=== PATIENT | female | born 1990 | race Caucasian/White ===

== ENCOUNTER 2016-08-10 09:42 | Emergency (ER) | payer SELFPAY ==
[2016-08-10 10:29] LABS: BASO % 0.4 % (0.0-1.0); EOS # 0.1 K/mm3 (0.0-0.50); EOS % 1.3 % (0.0-3.0); LARGE UNSTAINED CELL # 0.1 K/mm3 (0.0-0.4); LARGE UNSTAINED CELL % 1.7 % (0.0-4.0); LYMPH # 1.8 K/mm3 (1.5-6.5); LYMPH % 18.6 % (24.0-44.0); MEAN CORPUSCULAR HGB CONC 32.8 g/dl (32.0-36.5); MEAN CORPUSCULAR VOLUME 88.4 fl (80.0-96.0); MONO # 0.6 K/mm3 (0.0-0.8); MONO % 6.8 % (0.0-5.0); NEUTROPHILS # 6.1 K/mm3 (1.8-7.7); NEUTROPHILS % 71.3 % (36.0-66.0); PLATELET COUNT, AUTOMATED 403 k/mm3 (150-450); RED CELL DISTRIBUTION WIDTH 12.7 % (11.5-14.5); WHITE BLOOD COUNT 8.6 K/mm3 (4.0-10.0)
[2016-08-10 10:50] LABS: ANION GAP 9 MEQ/L (8-16); BLOOD UREA NITROGEN 14 MG/DL (7-18); CALCIUM LEVEL 9.3 MG/DL (8.5-10.1); CARBON DIOXIDE LEVEL 24 MEQ/L (21-32); CHLORIDE LEVEL 107 MEQ/L (98-107); CREATININE FOR GFR 1.05 MG/DL (0.55-1.02); GLOMERULAR FILTRATION RATE > 60.0 (>60); GLUCOSE, FASTING 88 MG/DL (70-105); POTASSIUM SERUM 4.2 MEQ/L (3.5-5.1); SODIUM LEVEL 140 MEQ/L (136-145)
[2016-08-10 10:56] LABS: HCG, SERUM QUANTITATIVE < 1.0 MIU/ML
--- NOTE | 2016-08-10 11:40 | REP ---
CHEST, TWO VIEWS: There is no evidence of acute infiltrate. No pleural effusion is seen. The heart is normal in size. The mediastinal silhouette is unremarkable. The visualized osseous structures are intact. IMPRESSION: No acute pulmonary disease. Signed by Bo Pinedo MD 08/10/2016 12:17 P
--- NOTE | 2016-08-10 11:54 | EDDOCDS ---
Nurse's Notes [facility], [place] Name: Jelena Cantu Age: 26 yrs Sex: Female : 1990 Arrival Date: 08/10/2016 Time: 09:42 Bed I2 / M2 Private MD: Diagnosis: Anxiety disorder, unspecified;Chest pain, unspecified Presentation: 08/10 09:48 Presenting complaint: Patient states: Intermittent chest pain over the past year mlb1 continuous in the past few days. Aspirin was not taken prior to arrival. Adult Sepsis Screening: The patient does not have new or worsening altered mentation. Patient's respiratory rate is less than 22. Systolic blood pressure is greater than 100. Patient has a qSOFA score of 0- Negative Sepsis Screen. Suicide/Homicide risk assessment- the patient denies having any suicidal and/or homicidal ideations and does not present with any other emotional, behavioral or mental health complaints. Status: Patient is not a food service ambassador or dependent. Transition of care: patient was not received from another setting of care. 09:48 Acuity: EDWARD Level 3 mlb1 09:48 Method Of Arrival: Walkin/Carried/Asstd mlb1 Triage Assessment: 09:50 General: Appears in no apparent distress, well nourished, well groomed, Behavior is mlb1 appropriate for age, cooperative, pleasant. Pain: Location: chest Pain currently is 7 out of 10 on a pain scale. Pain radiates to lower abd. Pt Declines HIV testing. Cardiovascular: Chest pain is described as Pain is 7 out of 10 on a pain scale. radiates lower abd episodes are intermittent x1 year began x1 year. Respiratory: Airway is patent Respiratory effort is even, unlabored, Reports shortness of breath. GI: Reports lower abdominal pain, Denies vomiting, pain. Derm: Skin is normal. Injury Description: No known injury. 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 aspirin 325 mg Oral TbEC 1 tab once daily (Last dose: 08/10/2016 07:00) 2. BCPs daily (Last dose: 08/10/2016 07:00) - PMHx: none; - PSHx: Appendectomy; - Social history: Smoking status: Patient states was never smoker of tobacco. Patient uses alcohol only on a social basis. Patient/guardian denies using street drugs, No barriers to communication noted, The patient speaks fluent Lebanese, Speaks appropriately for age. - Family history: Not pertinent. - : The pt / caregiver states he / she is not on anticoagulants. Home medication list is obtained from the patient. - Exposure Risk Screening:: None identified. Screenin:30 Screening information is obtained from the patient. Fall risk: No risks identified. jmk Assistance ADL's: requires no assistance with activities of daily living. Abuse/DV Screen: The patient / caregiver reports he/she is: not in a situation that causes fear, pain or injury. Nutritional screening: No deficits noted. Advance Directives: Currently, there is no health care proxy. There is no active DNR order. There is no living will. There is no Power of Barrel Leveler. Advance directive information has not previously been placed in an [facility] medical record. Further advance directive information is declined. home support is adequate. Assessment: 10:30 General: Appears skin warm and dry color satisfactory. moist pink oral mucosa Indicates jmk discomfort to left breast area. Pain is not increased with palpation inspiration or movement. chest CTA no work of breathing noted. Cardiovascular: Capillary refill < 3 seconds Heart tones S1 S2 present Edema is absent. Rhythm is regular. Respiratory: No deficits noted. Airway is patent Respiratory effort is even, unlabored, Respiratory pattern is regular, Breath sounds are clear bilaterally. 11:37 General: Appears states pain is still 6/10. very casual presentation. without resp jmk distress. awaiting dispo.. Vital Signs: 09:45 BP 133 / 78 RA Sitting (auto/reg); Pulse 84; Resp 16; Temp 99.1(O); Pulse Ox 98% ; jrd Weight 93.44 kg (R); Height 5 ft. 3 in. (160.02 cm); Pain 8/10; 11:45 BP 122 / 72; Pulse 76; Resp 14; Temp 99.2(O); Pulse Ox 97% on R/A; Pain 6/10; ead 09:45 Body Mass Index 36.49 (93.44 kg, 160.02 cm) jrd Vitals: 09:45 Log In Time: August 10, 2016 at 09:40. RN notified that patient meets Red Flag jrd criteria. ED Course: 09:44 Patient visited by Leander Musa PCA. jrd 09:44 Patient moved to Waiting jrd 09:47 Patient visited by Leander Musa PCA. jrd 09:47 Patient moved to Pre RCE jrd 09:48 Patient visited by Alessandro Akers RN. mlb1 09:49 Triage Initiated mlb1 09:53 Patient moved to Triage 2 mlb1 09:54 [facility] dt4 09:54 Kale Madrid MD is Attending Physician. dt4 09:55 Patient visited by Roxy Cordova PA-C. dt4 10:09 Patient moved to I2 / M2 ead 10:17 Patient visited by Cherelle Black RN. ead 10:17 Cardiac Injury Profile Sent. ead 10:17 TSH w/o Free T4 Sent. ead 10:17 Hcg, Serum Quantitative Sent. ead 10:17 CBC with Diff Sent. ead 10:17 Basic Metabolic Profile Sent. ead 10:17 Troponin Sent. ead 10:30 The patient / caregiver is instructed regarding the plan of care and ED course. Cardiac jmk monitoring not applicable on this patient. 10:30 Inserted saline lock: 20 gauge in right antecubital area. jmk 10:40 EKG done. (by ED staff). Reviewed by Roxy Cordova PA-C. tmm1 10:44 Patient name changed from Jelena\S\\S\Alondra\S\ to Jelena\S\Clarisa\S\Alondra. EDMS 10:45 PENDING SALE TO [facility] Payment Agreement was scanned into [employer]ent[employer] and attached to record. lg 11:28 Patient visited by Cherelle Black RN. ead 11:38 Patient visited by Bao Lares,KENDELL. jmk 11:42 [facility] is Referral Physician. dt4 11:52 Discontinued lock intact, bleeding controlled, pressure dressing applied, No jmk redness/swelling at site. No procedures done that require assistance. Order Results: Lab Order: Troponin; SPEC'M 17 10:15 Test: TROPONIN I; Value: < 0.02; Range: < 0.10; Units: NG/ML; Status: F Test Note: ; Troponin I Reference Interval for [employer] LOCI: 99th Percentile= 0.00-0.045 ng/ml Risk Stratification: <= 0.10 ng/ml Decreased Risk for Adverse Clinical Events. 0.10-1.50 ng/ml Increased Risk for Adverse Clinical Events. Evaluation of additional criterion and/or repeat testing in 2-6 hours is suggested to rule out myocardial damage. >= 1.50 ng/ml Indicative of Myocardial Injury. Lab Order: Cardiac Injury Profile; [facility] 08/10/16 10:15 Test: CPK CREATINE PHOSPHOKINASE; Value: 48; Range: 26-192; Units: U/L; Status: F Test: CK-MB VALUE MASS; Value: 1.2; Range: 0.0-3.6; Units: NG/ML; Status: F Test: MB/CK RELATIVE INDEX; Value: 2.50; Range: < OR =4; Status: F Test Note: ; DIAGNOSIS CRITERIA MMB ng/ml Relative Index (RI) NON-AMI < or = 5 N/A [place] > 5 < or = 4 AMI > 5 > 4 Lab Order: TSH w/o Free T4; [facility] 08/10/16 10:15 Test: THYROID STIMULATING HORMONE; Value: 2.330; Range: 0.358-3.740; Units: uIU/ML; Status: F Lab Order: Hcg, Serum Quantitative; [facility] 08/10/16 10:15 Test: HCG, SERUM QUANTITATIVE; Value: < 1.0; Units: MIU/ML; Status: F Test Note: ; GESTATIONAL AGE APPROXIMATE HCG RANGE (MIU/ML) 0.2-1 WEEK 5-50 1-2 WEEKS 50-500 2-3 WEEKS 100-5,000 3-4 WEEKS 500-10,000 4-5 WEEKS 1,000-50,000 5-6 WEEKS 10,000-100,000 6-8 WEEKS 15,000-200,000 2-3 MONTHS 10,000-100,000 NON FEMALES LESS THAN 3.0 Patient samples may contain human heterophilic antibodies that could react with immunoassays to give falsely elevated or depressed results. This assay has been designed to minimize interference from heterophilic antibodies. Elevated hCG levels have also been associated with trophoblastic disease and nontrophoblastic neoplasms. The possibility of having these diseases should be considered before a diagnosis of is made. This test is not intended for use as a surrogate marker for aiding in the diagnosis or monitoring the treatment of cancer patients. Siemens Pogoplug methodology. Lab Order: CBC with Diff; SPE[facility] 08/10/16 10:15 Test: WHITE BLOOD COUNT; Value: 8.6; Range: 4.0-10.0; Units: K/mm3; Status: F Test: RED BLOOD COUNT; Value: 4.38; Range: 4.00-5.40; Units: M/mm3; Status: F Test: HEMOGLOBIN; Value: 12.7; Range: 12.0-16.0; Units: g/dl; Status: F Test: HEMATOCRIT; Value: 38.7; Range: 36.0-47.0; Units: %; Status: F Test: MEAN CORPUSCULAR VOLUME; Value: 88.4; Range: 80.0-96.0; Units: fl; Status: F Test: MEAN CORPUSCULAR HEMOGLOBIN; Value: 29.0; Range: 27.0-33.0; Units: pg; Status: F Test: MEAN CORPUSCULAR HGB CONC; Value: 32.8; Range: 32.0-36.5; Units: g/dl; Status: F Test: RED CELL DISTRIBUTION WIDTH; Value: 12.7; Range: 11.5-14.5; Units: %; Status: F Test: PLATELET COUNT, AUTOMATED; Value: 403; Range: 150-450; Units: k/mm3; Status: F Test: NEUTROPHILS %; Value: 71.3; Range: 36.0-66.0; Abnormal: Above high normal; Units: %; Status: F Test: LYMPH %; Value: 18.6; Range: 24.0-44.0; Abnormal: Below low normal; Units: %; Status: F Test: MONO %; Value: 6.8; Range: 0.0-5.0; Abnormal: Above high normal; Units: %; Status: F Test: EOS %; Value: 1.3; Range: 0.0-3.0; Units: %; Status: F Test: BASO %; Value: 0.4; Range: 0.0-1.0; Units: %; Status: F Test: LARGE UNSTAINED CELL %; Value: 1.7; Range: 0.0-4.0; Units: %; Status: F Test: NEUTROPHILS #; Value: 6.1; Range: 1.8-7.7; Units: K/mm3; Status: F Test: LYMPH #; Value: 1.8; Range: 1.5-6.5; Units: K/mm3; Status: F Test: MONO #; Value: 0.6; Range: 0.0-0.8; Units: K/mm3; Status: F Test: EOS #; Value: 0.1; Range: 0.0-0.50; Units: K/mm3; Status: F Test: BASO #; Value: 0.0; Range: 0.0-0.2; Units: K/mm3; Status: F Test: LARGE UNSTAINED CELL #; Value: 0.1; Range: 0.0-0.4; Units: K/mm3; Status: F Lab Order: Basic Metabolic Profile; [facility] 08/10/16 10:15 Test: GLUCOSE, FASTING; Value: 88; Range: 70-105; Units: MG/DL; Status: F Test: BLOOD UREA NITROGEN; Value: 14; Range: 7-18; Units: MG/DL; Status: F Test: CREATININE FOR GFR; Value: 1.05; Range: 0.55-1.02; Abnormal: Above high normal; Units: MG/DL; Status: F Test: GLOMERULAR FILTRATION RATE; Value: > 60.0; Range: >60; Status: F Test: SODIUM LEVEL; Value: 140; Range: 136-145; Units: MEQ/L; Status: F Test: POTASSIUM SERUM; Value: 4.2; Range: 3.5-5.1; Units: MEQ/L; Status: F Test: CHLORIDE LEVEL; Value: 107; Range: 98-107; Units: MEQ/L; Status: F Test: CARBON DIOXIDE LEVEL; Value: 24; Range: 21-32; Units: MEQ/L; Status: F Test: ANION GAP; Value: 9; Range: 8-16; Units: MEQ/L; Status: F Test: CALCIUM LEVEL; Value: 9.3; Range: 8.5-10.1; Units: MG/DL; Status: F Test Note: ; Units are mL/min/1.73 m2 Chronic Kidney Disease Staging per NKF: Stage I & II GFR >=60 Normal to Mildly Decreased Stage III GFR 30-59 Moderately Decreased Stage IV GFR 15-29 Severely Decreased Stage V GFR <15 Very Little GFR Left ESRD GFR <15 on SUBSTATION ELECTRICIAN SUPERVISOR Outcome: 11:43 Discharge ordered by Provider. dt4 11:52 Discharge Assessment: Patient awake, alert and oriented x 3. No cognitive and/or k functional deficits noted. Patient verbalized understanding of disposition instructions. patient administered narcotics - no. The following High Risk Discharge criteria are identified: None. Discharged to home ambulatory. Condition: good. Discharge instructions given to patient, Instructed on discharge instructions, follow up and referral plans. medication usage, Demonstrated understanding of instructions, medications, Pt was receptive of discharge instructions/ teaching. Prescriptions given X 1. No special radiology studies were completed. Property :Personal belongings accompany Pt. 11:53 Patient left the ED. [facility] Signatures: Dispatcher [employer] EDMS Bao Lares,RN RN Ирина Avina, Alessandro Hinson lg RN RN mlb1 Pauline Crocker, SUPERINTENDENT OPERATING SUPERINTENDENT OPERATING tmm1 Cherelle Black,RN RN Roxy Chu, PA-C PA-C dt4 Leander Musa, SUPERINTENDENT OPERATING SUPERINTENDENT OPERATING jrd MTDD
--- NOTE | 2016-08-10 11:54 | EDDOCDS ---
Physician Documentation [facility] Name: Jelena Cantu Age: 26 yrs Sex: Female : 1990 Arrival Date: 08/10/2016 Time: 09:42 Bed I2 / M2 Private MD: Disposition: 08/10/16 11:43 Discharged to Home/Self Care. Impression: Anxiety disorder, unspecified, Chest pain, unspecified. - Condition is Stable. - Discharge Instructions: Nonspecific Chest Pain, Generalized Anxiety Disorder. - Prescriptions for Naprosyn 500 mg Oral Tablet - take 1 tablet by ORAL route every 12 hours As needed take with food; 30 tablet. - Medication Reconciliation, Local Pharmacy Hours form. - Follow up: Emergency Department; When: As needed; Reason: Worsening of conditions. [facility]; When: Call to arrange an appointment; Reason: Recheck today's complaints, Continuance of care, To establish care. - Problem is new. - Symptoms have improved. Historical: - Allergies: no known allergies; - Home Meds: 1. aspirin 325 mg Oral TbEC 1 tab once daily (Last dose: 08/10/2016 07:00) 2. BCPs daily (Last dose: 08/10/2016 07:00) - PMHx: none; - PSHx: Appendectomy; - Social history: Smoking status: Patient states was never smoker of tobacco. Patient uses alcohol only on a social basis. Patient/guardian denies using street drugs, No barriers to communication noted, The patient speaks fluent Telugu, Speaks appropriately for age. - Family history: Not pertinent. - : The pt / caregiver states he / she is not on anticoagulants. Home medication list is obtained from the patient. - Exposure Risk Screening:: None identified. 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 3 in. (160.02 cm); Pain 8/10; 11:45 BP 122 / 72; Pulse 76; Resp 14; Temp 99.2(O); Pulse Ox 97% on R/A; Pain 6/10; ead 09:45 Body Mass Index 36.49 (93.44 kg, 160.02 cm) jrd MDM: 10:09 IV Saline Lock ordered. dt4 10:10 Troponin Ordered. EDMS 10:10 Cardiac Injury Profile Ordered. EDMS 10:10 TSH w/o Free T4 Ordered. EDMS 10:10 Hcg, Serum Quantitative Ordered. EDMS 10:10 CBC with Diff Ordered. EDMS 10:10 Basic Metabolic Profile Ordered. EDMS 10:10 Chest, 2 View (pa\E\lat) Ordered. EDMS 10:10 ECG WITH READING ER PHYS+CARDIAG ordered. EDMS 10:21 Financial registration complete. lg 10:45 REPLACED BY [facility] Payment Agreement was scanned into [employer] and attached to record. lg 11:43 CBC with Diff Reviewed. dt4 11:43 Basic Metabolic Profile Reviewed. dt4 11:43 Troponin Reviewed. dt4 11:43 Cardiac Injury Profile Reviewed. dt4 11:43 TSH w/o Free T4 Reviewed. dt4 11:43 Hcg, Serum Quantitative Reviewed. dt4 Signatures: Dispatcher [employer] EDBao Antony,RN RN Ирина Avina, Reg Reg lg Alessandro Akers RN RN mlb1 Roxy Cordova, NIKA MAHER dt4 The chart was reviewed and I authenticate all verbal orders and agree with the evaluation and treatment provided.Attachments: 10:45 REPLACED BY [facility] Payment Agreement lg MTDD
--- NOTE | 2016-08-10 12:28 | ECGEPIP ---
Stationary ECG Study [facility] - ED Test Date: 2016-08-10 Pat Name: WENDIE MCCRAY Department: Room: - Gender: F Tool Distributor: [facility] : 1990 Requested By: ELOISA Burns PA-C Order Number: [id number] Reading MD: Feroz Sy Measurements Intervals [place] Rate: 78 P: 21 ME: 178 QRS: 74 QRSD: 83 T: 20 QT: 371 QTc: 425 Interpretive Statements SINUS RHYTHM NSTTW ABNORMALITIES NO PRIORS Electronically Signed On 08-10-2016 12:28:05 EST by Feroz Sy
--- NOTE | 2016-08-12 12:54 | EDDOCDS ---
Physician Documentation [facility] Name: Jelena Cantu Age: 26 yrs Sex: Female : 1990 Arrival Date: 08/10/2016 Time: 09:42 Bed I2 / M2 Private MD: Disposition: 08/10/16 11:43 Discharged to Home/Self Care. Impression: Anxiety disorder, unspecified, Chest pain, unspecified. - Condition is Stable. - Discharge Instructions: Nonspecific Chest Pain, Generalized Anxiety Disorder. - Prescriptions for Naprosyn 500 mg Oral Tablet - take 1 tablet by ORAL route every 12 hours As needed take with food; 30 tablet. - Medication Reconciliation, Local Pharmacy Hours form. - Follow up: Emergency Department; When: As needed; Reason: Worsening of conditions. [facility]: [facility]; When: Call to arrange an appointment; Reason: Recheck today's complaints, Continuance of care, To establish care. - Problem is new. - Symptoms have improved. Historical: - Allergies: no known allergies; - Home Meds: 1. aspirin 325 mg Oral TbEC 1 tab once daily (Last dose: 08/10/2016 07:00) 2. BCPs daily (Last dose: 08/10/2016 07:00) - PMHx: none; - PSHx: Appendectomy; - Social history: Smoking status: Patient states was never smoker of tobacco. Patient uses alcohol only on a social basis. Patient/guardian denies using street drugs, No barriers to communication noted, The patient speaks fluent Hungarian, Speaks appropriately for age. - Family history: Not pertinent. - : The pt / caregiver states he / she is not on anticoagulants. Home medication list is obtained from the patient. - Exposure Risk Screening:: None identified. 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 3 in. (160.02 cm); Pain 8/10; 11:45 BP 122 / 72; Pulse 76; Resp 14; Temp 99.2(O); Pulse Ox 97% on R/A; Pain 6/10; ead 09:45 Body Mass Index 36.49 (93.44 kg, 160.02 cm) jrd MDM: 10:09 IV Saline Lock ordered. dt4 10:10 Troponin Ordered. EDMS 10:10 Cardiac Injury Profile Ordered. EDMS 10:10 TSH w/o Free T4 Ordered. EDMS 10:10 Hcg, Serum Quantitative Ordered. EDMS 10:10 CBC with Diff Ordered. EDMS 10:10 Basic Metabolic Profile Ordered. EDMS 10:10 Chest, 2 View (pa\E\lat) Ordered. EDMS 10:10 ECG WITH READING ER PHYS+CARDIAG ordered. EDMS 10:21 Financial registration complete. lg 10:45 [facility] Payment Agreement was scanned into [email or web address] and attached to record. lg 11:43 CBC with Diff Reviewed. dt4 11:43 Basic Metabolic Profile Reviewed. dt4 11:43 Troponin Reviewed. dt4 11:43 Cardiac Injury Profile Reviewed. dt4 11:43 TSH w/o Free T4 Reviewed. dt4 11:43 Hcg, Serum Quantitative Reviewed. dt4 14:19 T-Sheet-- Draft Copy was scanned into [employer] and attached to record. klr 15:27 ECG/EKG was scanned into [employer]In and attached to record. gb Signatures: Dispatcher [employer]Host EDBao Antony,RN RN Tammy Landry, Reg Reg gb Ирина Mejia, Reg Reg lg Alessandro Akers RN RN mlb1 Roxy Cordova, PAOliviaC PA-C dt4 Chayo Rahamn The chart was reviewed and I authenticate all verbal orders and agree with the evaluation and treatment provided.Attachments: 10:45 [facility] Payment Agreement lg 14:19 T-Sheet-- Draft Copy klr 15:27 ECG/EKG gb Chart Complete MTDD
--- NOTE | 2016-08-12 12:54 | EDDOCDS ---
Physician Documentation [facility] Name: Jelena Cantu Age: 26 yrs Sex: Female : 1990 Arrival Date: 08/10/2016 Time: 09:42 Bed I2 / M2 Private MD: Disposition: 08/10/16 11:43 Discharged to Home/Self Care. Impression: Anxiety disorder, unspecified, Chest pain, unspecified. - Condition is Stable. - Discharge Instructions: Nonspecific Chest Pain, Generalized Anxiety Disorder. - Prescriptions for Naprosyn 500 mg Oral Tablet - take 1 tablet by ORAL route every 12 hours As needed take with food; 30 tablet. - Medication Reconciliation, Local Pharmacy Hours form. - Follow up: Emergency Department; When: As needed; Reason: Worsening of conditions. Follow [facility]: [facility]; When: Call to arrange an appointment; Reason: Recheck today's complaints, Continuance of care, To establish care. - Problem is new. - Symptoms have improved. Historical: - Allergies: no known allergies; - Home Meds: 1. aspirin 325 mg Oral TbEC 1 tab once daily (Last dose: 08/10/2016 07:00) 2. BCPs daily (Last dose: 08/10/2016 07:00) - PMHx: none; - PSHx: Appendectomy; - Social history: Smoking status: Patient states was never smoker of tobacco. Patient uses alcohol only on a social basis. Patient/guardian denies using street drugs, No barriers to communication noted, The patient speaks fluent Upper Sorbian, Speaks appropriately for age. - Family history: Not pertinent. - : The pt / caregiver states he / she is not on anticoagulants. Home medication list is obtained from the patient. - Exposure Risk Screening:: None identified. 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 3 in. (160.02 cm); Pain 8/10; 11:45 BP 122 / 72; Pulse 76; Resp 14; Temp 99.2(O); Pulse Ox 97% on R/A; Pain 6/10; ead 09:45 Body Mass Index 36.49 (93.44 kg, 160.02 cm) jrd MDM: 10:09 IV Saline Lock ordered. dt4 10:10 Troponin Ordered. EDMS 10:10 Cardiac Injury Profile Ordered. EDMS 10:10 TSH w/o Free T4 Ordered. EDMS 10:10 Hcg, Serum Quantitative Ordered. EDMS 10:10 CBC with Diff Ordered. EDMS 10:10 Basic Metabolic Profile Ordered. EDMS 10:10 Chest, 2 View (pa\E\lat) Ordered. EDMS 10:10 ECG WITH READING ER PHYS+CARDIAG ordered. EDMS 10:21 Financial registration complete. lg 10:45 ON LICENSE OF [facility] Payment Agreement was scanned into [employer] and attached to record. lg 11:43 CBC with Diff Reviewed. dt4 11:43 Basic Metabolic Profile Reviewed. dt4 11:43 Troponin Reviewed. dt4 11:43 Cardiac Injury Profile Reviewed. dt4 11:43 TSH w/o Free T4 Reviewed. dt4 11:43 Hcg, Serum Quantitative Reviewed. dt4 14:19 T-Sheet-- Draft Copy was scanned into [employer] and attached to record. klr 15:27 ECG/EKG was scanned into [employer] and attached to record. gb Signatures: Dispatcher [employer] EDBao Antony,RN RN Tammy Landry, Reg Reg gb Ирина Mejia, Reg Reg lg Alessandro Akers RN RN mlb1 Roxy Cordova, PAOliviaC PA-C dt4 Chayo Rahman The chart was reviewed and I authenticate all verbal orders and agree with the evaluation and treatment provided.Attachments: 10:45 ON LICENSE OF [facility] Payment Agreement lg 14:19 T-Sheet-- Draft Copy klr 15:27 ECG/EKG gb Chart Complete MTDD
--- NOTE | 2016-08-12 12:54 | EDDOCDS ---
Nurse's Notes [facility] Name: Wendie Cantu Age: 26 yrs Sex: Female : 1990 Arrival Date: 08/10/2016 Time: 09:42 Bed I2 / M2 Private MD: Diagnosis: Anxiety disorder, unspecified;Chest pain, unspecified Presentation: 08/10 09:48 Presenting complaint: Patient states: Intermittent chest pain over the past year mlb1 continuous in the past few days. Aspirin was not taken prior to arrival. Adult Sepsis Screening: The patient does not have new or worsening altered mentation. Patient's respiratory rate is less than 22. Systolic blood pressure is greater than 100. Patient has a qSOFA score of 0- Negative Sepsis Screen. Suicide/Homicide risk assessment- the patient denies having any suicidal and/or homicidal ideations and does not present with any other emotional, behavioral or mental health complaints. Status: Patient is not a service superintendent or dependent. Transition of care: patient was not received from another setting of care. 09:48 Acuity: EDWARD Level 3 mlb1 09:48 Method Of Arrival: Walkin/Carried/Asstd mlb1 Triage Assessment: 09:50 General: Appears in no apparent distress, well nourished, well groomed, Behavior is mlb1 appropriate for age, cooperative, pleasant. Pain: Location: chest Pain currently is 7 out of 10 on a pain scale. Pain radiates to lower abd. Pt Declines HIV testing. Cardiovascular: Chest pain is described as Pain is 7 out of 10 on a pain scale. radiates lower abd episodes are intermittent x1 year began x1 year. Respiratory: Airway is patent Respiratory effort is even, unlabored, Reports shortness of breath. GI: Reports lower abdominal pain, Denies vomiting, pain. Derm: Skin is normal. Injury Description: No known injury. 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 aspirin 325 mg Oral TbEC 1 tab once daily (Last dose: 08/10/2016 07:00) 2. BCPs daily (Last dose: 08/10/2016 07:00) - PMHx: none; - PSHx: Appendectomy; - Social history: Smoking status: Patient states was never smoker of tobacco. Patient uses alcohol only on a social basis. Patient/guardian denies using street drugs, No barriers to communication noted, The patient speaks fluent Latvian, Speaks appropriately for age. - Family history: Not pertinent. - : The pt / caregiver states he / she is not on anticoagulants. Home medication list is obtained from the patient. - Exposure Risk Screening:: None identified. Screenin:30 Screening information is obtained from the patient. Fall risk: No risks identified. jmk Assistance ADL's: requires no assistance with activities of daily living. Abuse/DV Screen: The patient / caregiver reports he/she is: not in a situation that causes fear, pain or injury. Nutritional screening: No deficits noted. Advance Directives: Currently, there is no health care proxy. There is no active DNR order. There is no living will. There is no Power of Groundman. Advance directive information has not previously been placed in an [facility] medical record. Further advance directive information is declined. home support is adequate. Assessment: 10:30 General: Appears skin warm and dry color satisfactory. moist pink oral mucosa Indicates jmk discomfort to left breast area. Pain is not increased with palpation inspiration or movement. chest CTA no work of breathing noted. Cardiovascular: Capillary refill < 3 seconds Heart tones S1 S2 present Edema is absent. Rhythm is regular. Respiratory: No deficits noted. Airway is patent Respiratory effort is even, unlabored, Respiratory pattern is regular, Breath sounds are clear bilaterally. 11:37 General: Appears states pain is still 6/10. very casual presentation. without resp jmk distress. awaiting dispo.. Vital Signs: 09:45 BP 133 / 78 RA Sitting (auto/reg); Pulse 84; Resp 16; Temp 99.1(O); Pulse Ox 98% ; jrd Weight 93.44 kg (R); Height 5 ft. 3 in. (160.02 cm); Pain 8/10; 11:45 BP 122 / 72; Pulse 76; Resp 14; Temp 99.2(O); Pulse Ox 97% on R/A; Pain 6/10; ead 09:45 Body Mass Index 36.49 (93.44 kg, 160.02 cm) jrd Vitals: 09:45 Log In Time: August 10, 2016 at 09:40. RN notified that patient meets Red Flag jrd criteria. ED Course: 09:44 Patient visited by Leander Musa PCA. jrd 09:44 Patient moved to Waiting jrd 09:47 Patient visited by Leander Musa PCA. jrd 09:47 Patient moved to Pre RCE jrd 09:48 Patient visited by Alessandro Akers RN. mlb1 09:49 Triage Initiated mlb1 09:53 Patient moved to Triage 2 mlb1 09:54 Roxy Cordova PA-C is PHCP. dt4 09:54 Kale Madrid MD is Attending Physician. dt4 09:55 Patient visited by Roxy Cordova PA-C. dt4 10:09 Patient moved to I2 / M2 ead 10:17 Patient visited by Cherelle Black RN. ead 10:17 Cardiac Injury Profile Sent. ead 10:17 TSH w/o Free T4 Sent. ead 10:17 Hcg, Serum Quantitative Sent. ead 10:17 CBC with Diff Sent. ead 10:17 Basic Metabolic Profile Sent. ead 10:17 Troponin Sent. ead 10:30 The patient / caregiver is instructed regarding the plan of care and ED course. Cardiac jmk monitoring not applicable on this patient. 10:30 Inserted saline lock: 20 gauge in right antecubital area. jmk 10:40 EKG done. (by ED staff). Reviewed by Roxy Cordova PA-C. tmm1 10:44 Patient name changed from Wendie\S\\S\Alondra\S\ to Wendie\S\Clarisa\S\Alondra. EDMS 10:45 [facility] Payment Agreement was scanned into [employer] and attached to record. lg 11:28 Patient visited by Cherelle Black,KENDELL. ead 11:38 Patient visited by Bao Lares,KENDELL. jmk 11:42 [facility] is Referral Physician. dt4 11:52 Discontinued lock intact, bleeding controlled, pressure dressing applied, No jmk redness/swelling at site. No procedures done that require assistance. 12:10 Chest, 2 View (pa\E\lat) Returned. EDMS 12:47 EKG-ADULT Returned. EDMS 14:19 T-Sheet-- Draft Copy was scanned into [employer] and attached to record. klr 15:27 ECG/EKG was scanned into [employer] and attached to record. gb Order Results: Lab Order: Troponin; [facility] 08/10/16 10:15 Test: TROPONIN I; Value: < 0.02; Range: < 0.10; Units: NG/ML; Status: F Test Note: ; Troponin I Reference Interval for [employer] LOCI: 99th Percentile= 0.00-0.045 ng/ml Risk Stratification: <= 0.10 ng/ml Decreased Risk for Adverse Clinical Events. 0.10-1.50 ng/ml Increased Risk for Adverse Clinical Events. Evaluation of additional criterion and/or repeat testing in 2-6 hours is suggested to rule out myocardial damage. >= 1.50 ng/ml Indicative of Myocardial Injury. Lab Order: Cardiac Injury Profile; [facility] 08/10/16 10:15 Test: CPK CREATINE PHOSPHOKINASE; Value: 48; Range: 26-192; Units: U/L; Status: F Test: CK-MB VALUE MASS; Value: 1.2; Range: 0.0-3.6; Units: NG/ML; Status: F Test: MB/CK RELATIVE INDEX; Value: 2.50; Range: < OR =4; Status: F Test Note: ; DIAGNOSIS CRITERIA MMB ng/ml Relative Index (RI) NON-AMI < or = 5 N/A [place] > 5 < or = 4 AMI > 5 > 4 Lab Order: TSH w/o Free T4; [facility] 08/10/16 10:15 Test: THYROID STIMULATING HORMONE; Value: 2.330; Range: 0.358-3.740; Units: uIU/ML; Status: F Lab Order: Hcg, Serum Quantitative; [facility] 08/10/16 10:15 Test: HCG, SERUM QUANTITATIVE; Value: < 1.0; Units: MIU/ML; Status: F Test Note: ; GESTATIONAL AGE APPROXIMATE HCG RANGE (MIU/ML) 0.2-1 WEEK 5-50 1-2 WEEKS 50-500 2-3 WEEKS 100-5,000 3-4 WEEKS 500-10,000 4-5 WEEKS 1,000-50,000 5-6 WEEKS 10,000-100,000 6-8 WEEKS 15,000-200,000 2-3 MONTHS 10,000-100,000 NON FEMALES LESS THAN 3.0 Patient samples may contain human heterophilic antibodies that could react with immunoassays to give falsely elevated or depressed results. This assay has been designed to minimize interference from heterophilic antibodies. Elevated hCG levels have also been associated with trophoblastic disease and nontrophoblastic neoplasms. The possibility of having these diseases should be considered before a diagnosis of is made. This test is not intended for use as a surrogate marker for aiding in the diagnosis or monitoring the treatment of cancer patients. [employer] methodology. Lab Order: CBC with Diff; [facility] 08/10/16 10:15 Test: WHITE BLOOD COUNT; Value: 8.6; Range: 4.0-10.0; Units: K/mm3; Status: F Test: RED BLOOD COUNT; Value: 4.38; Range: 4.00-5.40; Units: M/mm3; Status: F Test: HEMOGLOBIN; Value: 12.7; Range: 12.0-16.0; Units: g/dl; Status: F Test: HEMATOCRIT; Value: 38.7; Range: 36.0-47.0; Units: %; Status: F Test: MEAN CORPUSCULAR VOLUME; Value: 88.4; Range: 80.0-96.0; Units: fl; Status: F Test: MEAN CORPUSCULAR HEMOGLOBIN; Value: 29.0; Range: 27.0-33.0; Units: pg; Status: F Test: MEAN CORPUSCULAR HGB CONC; Value: 32.8; Range: 32.0-36.5; Units: g/dl; Status: F Test: RED CELL DISTRIBUTION WIDTH; Value: 12.7; Range: 11.5-14.5; Units: %; Status: F Test: PLATELET COUNT, AUTOMATED; Value: 403; Range: 150-450; Units: k/mm3; Status: F Test: NEUTROPHILS %; Value: 71.3; Range: 36.0-66.0; Abnormal: Above high normal; Units: %; Status: F Test: LYMPH %; Value: 18.6; Range: 24.0-44.0; Abnormal: Below low normal; Units: %; Status: F Test: MONO %; Value: 6.8; Range: 0.0-5.0; Abnormal: Above high normal; Units: %; Status: F Test: EOS %; Value: 1.3; Range: 0.0-3.0; Units: %; Status: F Test: BASO %; Value: 0.4; Range: 0.0-1.0; Units: %; Status: F Test: LARGE UNSTAINED CELL %; Value: 1.7; Range: 0.0-4.0; Units: %; Status: F Test: NEUTROPHILS #; Value: 6.1; Range: 1.8-7.7; Units: K/mm3; Status: F Test: LYMPH #; Value: 1.8; Range: 1.5-6.5; Units: K/mm3; Status: F Test: MONO #; Value: 0.6; Range: 0.0-0.8; Units: K/mm3; Status: F Test: EOS #; Value: 0.1; Range: 0.0-0.50; Units: K/mm3; Status: F Test: BASO #; Value: 0.0; Range: 0.0-0.2; Units: K/mm3; Status: F Test: LARGE UNSTAINED CELL #; Value: 0.1; Range: 0.0-0.4; Units: K/mm3; Status: F Lab Order: Basic Metabolic Profile; SPEC'M 08/10/16 10:15 Test: GLUCOSE, FASTING; Value: 88; Range: 70-105; Units: MG/DL; Status: F Test: BLOOD UREA NITROGEN; Value: 14; Range: 7-18; Units: MG/DL; Status: F Test: CREATININE FOR GFR; Value: 1.05; Range: 0.55-1.02; Abnormal: Above high normal; Units: MG/DL; Status: F Test: GLOMERULAR FILTRATION RATE; Value: > 60.0; Range: >60; Status: F Test: SODIUM LEVEL; Value: 140; Range: 136-145; Units: MEQ/L; Status: F Test: POTASSIUM SERUM; Value: 4.2; Range: 3.5-5.1; Units: MEQ/L; Status: F Test: CHLORIDE LEVEL; Value: 107; Range: 98-107; Units: MEQ/L; Status: F Test: CARBON DIOXIDE LEVEL; Value: 24; Range: 21-32; Units: MEQ/L; Status: F Test: ANION GAP; Value: 9; Range: 8-16; Units: MEQ/L; Status: F Test: CALCIUM LEVEL; Value: 9.3; Range: 8.5-10.1; Units: MG/DL; Status: F Test Note: ; Units are mL/min/1.73 m2 Chronic Kidney Disease Staging per NKF: Stage I & II GFR >=60 Normal to Mildly Decreased Stage III GFR 30-59 Moderately Decreased Stage IV GFR 15-29 Severely Decreased Stage V GFR <15 Very Little GFR Left ESRD GFR <15 on [place] Radiology Order: Chest, 2 View (pa\E\lat) Test: Chest, 2 View (pa\E\lat) REASON FOR EXAMINATION: Chest Pain; CHEST, TWO VIEWS:; ; There is no evidence of acute infiltrate.; ; No pleural effusion is seen.; ; The heart is normal in size.; ; The mediastinal silhouette is unremarkable.; ; The visualized osseous structures are intact.; ; IMPRESSION:; ; No acute pulmonary disease.; ; ; Signed by; Bo Pinedo MD 08/10/2016 12:17 P; Radiology Order: EKG-ADULT Test: EKG-ADULT REASON FOR EXAMINATION: Chest Pain; Stationary ECG Study; [facility] - ED; ; Test Date: 2016-08-10; Pat Name: WENDIE CANTU Department:; Room: -; Gender: F 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 dt4 11:52 Discharge Assessment: Patient awake, alert and oriented x 3. No cognitive and/or jmk functional deficits noted. Patient verbalized understanding of disposition instructions. patient administered narcotics - no. The following High Risk Discharge criteria are identified: None. Discharged to home ambulatory. Condition: good. Discharge instructions given to patient, Instructed on discharge instructions, follow up and referral plans. medication usage, Demonstrated understanding of instructions, medications, Pt was receptive of discharge instructions/ teaching. Prescriptions given X 1. No special radiology studies were completed. Property :Personal belongings accompany Pt. 11:53 Patient left the ED. vero Signatures: Dispatcher [employer] EDMS Bao Lares,RN RN Tammy Landry, Reg Reg gb Ирина Mejia, Reg Reg lg Alessandro Akers RN RN mlb1 Pauline Crocker, MILITARY PROFESSIONAL MILITARY PROFESSIONAL tmm1 Cherelle Black,RN RN Roxy Chu, PA-C PA-C dt4 Leander Musa, MILITARY PROFESSIONAL MILITARY PROFESSIONAL jrChayo Mar Chart Complete MTDSintia
== END 2016-08-10 11:53 | disposition home or self-care (01) ==
LOC: M ED 09:42
DX: R41.9 Unspecified symptoms and signs involving cognitive functions and awareness (principal); R07.9 Chest pain, unspecified; Z79.3 Long term (current) use of hormonal contraceptives; Z79.82 Long term (current) use of aspirin